=== PATIENT | female | born 1965 | race Caucasian/White ===

== ENCOUNTER 2016-08-04 21:33 | Emergency (ER) | payer MEDICAID ==
--- NOTE | 2016-08-04 21:55 | Emergency Department Record ---
History of Present Illness - General Chief Complaint: Chest Pain Stated Complaint: CHEST PAIN Time Seen by Provider: 08/04/16 21:54 Source: Patient Mode of Arrival: Ambulatory Limitations: No limitations - History of Present Illness Initial Comments: 51 yo female presents with right sided chest pain. The pain started at 6pm while eating dinner. It hurts in a specific place right of the sternum. It hurts to tough, move or take a deep breaths. No cough. No history of DVT, NH, HRT, CAD. The area is worse with palpation of the spot and worse if she tries to take a deep breath. No fevers. Non exertional in nature. No family history of CAD. MD Complaint: Chest pain -: Hour(s) (4) Onset: After eating Pain Location: Right chest Pain Radiation: None Severity: Moderate Quality: Aching Consistency: Constant Improves With: Remaining still Worsens With: Movement, Palpation Context: Other (No recent illness) Anginal Symptoms: Other (No shortness of breath) Treatments Prior to Arrival: None - Related Data Home Medications Medication Instructions Recorded Confirmed Last Taken Bupropion HCl [Wellbutrin Xl] 300 mg PO DAILY 08/04/16 08/04/16 08/04/16 Allergies Allergy/AdvReac Type Severity Reaction Status Date / Time No Known Drug Allergies Allergy Verified 08/04/16 21:39 Review of Systems Constitutional: Denies: Chills, Fever, Weakness Eyes: Denies: Eye discharge, Eye pain, Photophobia, Vision change ENT: Denies: Congestion, Epistaxis, Throat pain Respiratory: Denies: Cough, Dyspnea, Hemoptysis, Stridor, Wheezes Cardiovascular: Reports: As per HPI, Chest pain. Denies: Dyspnea on exertion, Edema, Palpitations, Syncope Endocrine: Denies: Fatigue Gastrointestinal: Denies: Abdominal pain, Diarrhea, Nausea, Vomiting Genitourinary: Denies: Dysuria Musculoskeletal: Denies: Arthralgia, Back pain, Joint swelling, Myalgia Skin: Denies: Bruising, Change in color, Rash Neurological: Denies: Headache, Numbness, Weakness Psychiatric: Denies: Anxiety Hematological/Lymphatic: Denies: Blood Clots, Easy bleeding, Easy bruising, Swollen glands Physical Exam - General General Appearance: Alert, Oriented x3, Cooperative, No acute distress Limitations: No limitations - Head Head exam: Atraumatic, Normocephalic, Normal inspection - Eye Eye exam: Normal appearance, PERRL. negative: Conjunctival injection, Periorbital swelling - ENT ENT exam: Normal exam, Mucous membranes moist Ear exam: Normal external inspection Nasal Exam: Normal inspection Mouth exam: Normal external inspection Teeth exam: Normal inspection Throat exam: Normal inspection - Neck Neck exam: Normal inspection, Full ROM. negative: Lymphadenopathy, Tenderness - Respiratory Respiratory exam: Normal lung sounds bilaterally, Chest wall tenderness (point tenderness right sternal border, mid sternum, no swellling or redness). negative: Accessory muscle use - Cardiovascular Cardiovascular Exam: Regular rate, Normal rhythm, Normal heart sounds Peripheral Pulses: 2+: Radial (R), Radial (L) - GI/Abdominal GI/Abdominal exam: Soft. negative: Tenderness - Rectal Rectal exam: Deferred - exam: Deferred - Extremities Extremities exam: Normal inspection, Full ROM, Normal capillary refill. negative: Pedal edema, Tenderness - Back Back exam: Reports: Normal inspection, Full ROM. Denies: Muscle spasm, Rash noted, Tenderness - Neurological Neurological exam: Alert, Normal gait, Oriented X3 - Psychiatric Psychiatric exam: Normal affect, Normal mood - Skin Skin exam: Dry, Intact, Normal color, Warm Course - Reevaluation(s) Reevaluation #1: EKG 21:36 NSR, rate 91, intervals normal, ST No acute changes, [place] normal 08/04/16 21:55 Reevaluation #2: The labs were reviewed. No acute changes of the CBC or CMP with normal renal function D-Dimer is elevated at 0.67 I explained this and recommend a CTA given the pain with deep inspiration 08/04/16 23:06 Reevaluation #3: The CTA of the chest was negative for PE She has a small left adrenal adenoma, benign. 08/05/16 00:59 Reevaluation #4: Repeat enzymes ordered for atypical pain that occurred 7 hours prior 08/05/16 01:00 Reevaluation #5: The repeat Troponin was negative The symptoms are very atypical with reproducibility with palpation and breathing , no significant risk factors for CAD, negative enzymes x's 2 with reproducible tenderness, normal CTA of the chest. We discussed the results and the plan to DC home for atypical chest wall pain We discussed close follow up and returning to the ER if any concerns, return of symptoms, short of breath. 08/05/16 01:18 08/05/16 01:46 Medical Decision Making - Lab Data Result diagrams: 08/04/16 21:50 08/04/16 21:50 Disposition Disposition: Discharge Clinical Impression: Chest wall pain Disposition: Home, Self-Care Condition: (1) Good Instructions: Chest Pain (ED) Additional Instructions: Return to the ER if you have return of pain, short of breath, swelling or any new concerns Call your doctor tomorrow for close follow up Forms: Patient Portal Access Time of Disposition: 01:19
[2016-08-04 22:09] LABS: BASO % 0.4 % (0-6); EOS % 1.5 % (0-6); GRAN % 64.8 % (47-80); HEMATOCRIT 41.6 % (35.0-47.0); HEMOGLOBIN 13.4 gm/dl (11.6-16.0); LYMPH % 24.6 % (16-45); MEAN CELL VOLUME 90.8 fl (81-97); MEAN CORPUSCULAR HEMOGLOBIN 29.3 pg (27-33); MEAN CORPUSCULAR HGB CONC 32.2 g/dl (32-36); MEAN PLATELET VOLUME 11.3 fl (7.4-10.4); MONO % 8.7 % (0-9); PLATELET COUNT 229 K/uL (130-400); RED BLOOD COUNT 4.58 M/uL (3.80-5.40); RED CELL DISTRIBUTION WIDTH 14.1 % (11.5-14.5); WHITE BLOOD COUNT W/O DIFF 9.1 K/uL (4.2-12.2)
[2016-08-04 22:21] LABS: ALB/GLOB RATIO 1.1 (1.1-1.8); ALBUMIN 4.3 gm/dL (3.5-5.0); ALKALINE PHOSPHATASE 110 U/L (38-126); ALT/SGPT 20 U/L (9-52); ANION GAP 4.9 (7-16); AST/SGOT 24 U/L (14-36); BILIRUBIN,TOTAL 0.47 mg/dL (0.2-1.3); BLOOD UREA NITROGEN 18 mg/dL (7-17); CARBON DIOXIDE 27.1 mmol/L (22-30); CREATINE PHOSPHOKINASE 112 U/L (30-135); CREATININE 0.9 mg/dL (0.52-1.04); EST GLOMERULAR FILTRATION RATE > 60 ml/min; GLUCOSE,RANDOM 97 mg/dL (70-110); TOTAL PROTEIN 8.2 gm/dL (6.3-8.2)
[2016-08-04 22:33] LABS: CKMB 0.4 ug/L (0-6); TROPONIN I < 0.012 ng/mL (0.00-0.034)
[2016-08-04] MEDS: KETOROLAC 30 MG/ML VIAL IVP ONE (22:50)
--- NOTE | 2016-08-06 09:03 | CT ANGIOGRAM REPORT ---
EXAM: CTA OF THE CHEST HISTORY: DIFFICULTY BREATHING. TECHNIQUE: CTA of the chest was performed following the IV administration of 89 ml of Omnipaque 350 contrast. Axial images were obtained with coronal and sagittal MIP reconstructions. Comparison: None. FINDINGS: The mediastinal vasculature enhances normally. There is no intraluminal filling defect to suggest pulmonary embolus. Negative for thoracic aortic aneurysm or dissection. The heart and pericardium are unremarkable. No adenopathy. Limited evaluation of the upper abdomen demonstrates a left adrenal nodule, likely relating to adenoma measuring 8 x 8 mm. The osseous structures are grossly intact. The visualized airways are patent. The lungs are clear. No pneumothorax. IMPRESSION: 1. NEGATIVE FOR AN ACUTE INTRATHORACIC PROCESS. 2. 8 MM LEFT ADRENAL NODULE, LIKELY AN ADENOMA. THIS COULD BE CONFIRMED WITH MULTIPHASIC MRI. JOB NUMBER: [id number] MTDD
== END 2016-08-05 01:36 | disposition home or self-care (01) ==
LOC: ER 21:33
DX: R07.9 Chest pain, unspecified (principal); D35.02 Benign neoplasm of left adrenal gland
CPT/HCPCS: 71275; 80053; 82550; 82553; 84484; 85025; 85379; 93005; 93010; 96374; 99284; J1885

== ENCOUNTER 2017-02-02 12:35 | Day surgery (SDC) | payer MEDICAID ==
[2017-02-02] MEDS ORDERED: PROPOFOL 10 MG/ML VIAL IV ONE (12:36)
[2017-02-02] MEDS ORDERED: LIDOCAINE 2% MDV (20MG/ML) 20ML VIAL IV ONE (12:36)
--- NOTE | 2017-02-03 13:30 | Operative Note ---
DATE OF SURGERY: 02/02/2017 OPERATION: COLONOSCOPY to the cecum. INDICATION: Colorectal cancer screening. ANESTHESIA: Intravenous sedation was administered by the department of anesthesiology and included Diprivan titrated to effect. PROCEDURE: Following informed consent from this alert individual including a discussion of the risks and benefits of the procedure and an opportunity for the patient to ask questions, the patient was in the left lateral decubitus position. A digital rectal examination was performed. No abnormalities were noted. Following this, the Olympus [id number] video colonoscope was inserted into the rectum without resistance. The rectal mucosa had a normal appearance with normal folds and distensibility. The colonoscope was advanced up through the colon to the level of the cecum without much difficulty. Throughout the bowel the mucosa appeared normal, the folds were normal, and the bowel was fairly well distensible. The cecum was defined by noting the appendiceal orifice and ileocecal valve. The colon preparation was good. From the base of the cecum, the colonoscope was then slowly withdrawn. No abnormalities were noted upon withdrawal. Retroflexion in the rectum was endoscopically unremarkable. The endoscope was straightened and removed. The patient tolerated the procedure well and was returned to the recovery area in stable condition. IMPRESSION: Unremarkable colonoscopy to the cecum. RECOMMENDATIONS: The patient was advised to have recheck colonoscopy for screening in 10 years' time or sooner should problems arise. Followup will be with Dr. Sylvester Davis. As always, thank you for allowing me to participate in the care of your patient. CC: Dr. Ryan WELLS
== END 2017-02-02 14:25 | disposition home or self-care (01) ==
LOC: HOP 12:35
PROVIDERS: ATTEND Internal Medicine Gastroenterology
DX: Z12.11 Encounter for screening for malignant neoplasm of colon (principal); I10 Essential (primary) hypertension
CPT/HCPCS: 00810; G0121

== ENCOUNTER 2018-05-02 22:04 | Observation (INO) | payer MEDICAID ==
[2018-05-02] MEDS ORDERED: ASPIRIN 81 MG CHEWABLE TABLET PO ONE (22:11)
--- NOTE | 2018-05-02 22:16 | Emergency Department Record ---
History of Present Illness - General Chief Complaint: Chest Pain Stated Complaint: LT ARM NUMBNESS,CHEST PRESSURE Time Seen by Provider: 05/02/18 22:06 Source: Patient Mode of Arrival: Ambulatory Limitations: No limitations - History of Present Illness Initial Comments: 53 yo female presents to ED for evaluation of chest discomfort and left upper extremity numbness that began this evening. Patient reports "I think it may be my anxiety, my blood pressure is never this high". Patient denies anything that improves or worsens her symptoms, denies fevers, chills, or recent illness. Patient denies lower extremity edema, swelling, or history of DVT. MD Complaint: Chest pain Onset/Timin -: Hour(s) Pain Location: Substernal Pain Radiation: None Severity: Moderate Quality: Aching Consistency: Constant Improves With: Nothing Worsens With: Nothing Treatments Prior to Arrival: None - Related Data On Oral Contraceptives: No Home Medications Medication Instructions Recorded Confirmed Last Taken Amlodipine Besylate/Benazepril 1 tab PO DAILY 05/02/18 05/02/18 Unknown [Amlodipine-Benazepril 5-20 mg] Allergies Allergy/AdvReac Type Severity Reaction Status Date / Time No Known Drug Allergies Allergy Verified 05/02/18 22:06 Review of Systems Constitutional: Denies: Chills, Fever, Malaise, Night sweats Eyes: Denies: Eye discharge, Eye pain ENT: Denies: Congestion, Ear pain, Epistaxis Respiratory: Denies: Cough, Dyspnea Cardiovascular: Reports: Chest pain. Denies: Dyspnea on exertion Endocrine: Denies: Fatigue, Heat or cold intolerance Gastrointestinal: Denies: Abdominal pain, Nausea, Vomiting Genitourinary: Denies: Incontinence, Retention Musculoskeletal: Denies: Arthralgia, Back pain Skin: Denies: Bruising, Change in color Neurological: Denies: Abnormal gait, Confusion, Headache, Seizure Psychiatric: Reports: Anxiety Hematological/Lymphatic: Denies: Anemia, Blood Clots Past Medical History - SOCIAL HISTORY Smoking Status: Never smoker - RESPIRATORY Hx Respiratory Disorders: No - CARDIOVASCULAR Hx Cardio Disorders: Yes Hx Hypertension: Yes - NEURO Hx Neuro Disorders: No - GI Hx GI Disorders: No - Hx Genitourinary Disorders: No - ENDOCRINE Hx Endocrine Disorders: No - MUSCULOSKELETAL Hx Musculoskeletal Disorders: Yes Hx Arthritis: Yes - PSYCH Hx Psych Problems: No - HEMATOLOGY/ONCOLOGY Hx Hematology/Oncology Disorders: Yes Hx Blood Transfusions: Yes (2 years old) Family Medical History Family Hx Comment (NOT TO BE USED IN PLACE OF ITEMS BELOW): denies Physical Exam - General General Appearance: Alert, Oriented x3, Cooperative, Mild distress, Anxious Limitations: No limitations - Head Head exam: Atraumatic, Normocephalic, Normal inspection Head exam detail: negative: Abrasion, Contusion, Wolf's sign, General tenderness, Hematoma, Laceration - Eye Eye exam: Normal appearance. negative: Conjunctival injection, Periorbital swelling, Periorbital tenderness, Scleral icterus - ENT Ear exam: negative: Auricular hematoma, Auricular trauma Nasal Exam: negative: Active bleeding, Discharge, Dried blood, Foreign body Mouth exam: negative: Drooling, Laceration, Muffled voice, Tongue elevation - Neck Neck exam: Normal inspection. negative: Meningismus, Tenderness - Respiratory Respiratory exam: Normal lung sounds bilaterally. negative: Rales, Respiratory distress, Rhonchi, Stridor - Cardiovascular Cardiovascular Exam: Regular rate, Normal rhythm, Normal heart sounds - GI/Abdominal GI/Abdominal exam: Soft. negative: Rebound, Rigid, Tenderness - Rectal Rectal exam: Deferred - exam: Deferred - Extremities Extremities exam: Normal inspection. negative: Pedal edema, Tenderness - Back Back exam: Denies: CVA tenderness (R), CVA tenderness (L) - Neurological Neurological exam: Alert, Normal gait, Oriented X3 - Psychiatric Psychiatric exam: Anxious, Normal mood - Skin Skin exam: Normal color. 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 Reevaluation #3: 05/02/18 23:26 CXR: No acute process Patient was updated on all results, will admit for further cardiac evaluation. Medical Decision Making - Lab Data Result diagrams: 05/02/18 22:23 05/02/18 22:23 Disposition Disposition: Admit Clinical Impression: Chest pain Qualifiers: Chest pain type: unspecified Qualified Code(s): R07.9 - Chest pain, unspecified Disposition: Still a Patient at [facility] Decision to Admit: Admit from ER Decision to Admit Date: 05/02/18 Decision to Admit Time: 23:27 Condition: (2) Stable Forms: Patient Portal Access Quality - Quality Measures Quality Measures: N/A - Blood Pressure Screening Does Patient Have Any of the Following: No Blood Pressure Classification: Hypertensive Reading Systolic Measurement: 173 Diastolic Measurement: 92 Screening for High Blood Pressure: < First Hypertensive BP, F/U Documented > [ [id number]] First Hypertensive Follow-up Interventions: Referral to alternative/primary care provider.
[2018-05-02 22:30] LABS: BASO % 0.5 % (0-6); EOS % 1.4 % (0-6); GRAN % 56.6 % (47-80); HEMATOCRIT 44.6 % (35.0-47.0); LYMPH % 32.4 % (16-45); MEAN CELL VOLUME 91.2 fl (81-97); MEAN CORPUSCULAR HEMOGLOBIN 28.6 pg (27-33); MEAN CORPUSCULAR HGB CONC 31.4 g/dl (32-36); MEAN PLATELET VOLUME 10.9 fl (7.4-10.4); MONO % 9.1 % (0-9); PLATELET COUNT 242 K/uL (130-400); RED BLOOD COUNT 4.89 M/uL (3.80-5.40); RED CELL DISTRIBUTION WIDTH 14.3 % (11.5-14.5); WHITE BLOOD COUNT W/O DIFF 7.8 K/uL (4.2-12.2)
[2018-05-02 22:44] LABS: BLOOD UREA NITROGEN 15 mg/dL (6-20); CREATININE 1.1 mg/dL (0.5-0.9); EST GLOMERULAR FILTRATION RATE 55 mL/min
[2018-05-02 22:45] LABS: TOTAL PROTEIN 8.1 g/dL (6.6-8.7)
[2018-05-02 22:47] LABS: GLUCOSE,RANDOM 110 mg/dL (74-109)
[2018-05-02 22:50] LABS: ALB/GLOB RATIO 1.3 (1.1-1.8); ALBUMIN 4.5 g/dL (4.0-5.0); ALKALINE PHOSPHATASE 87 U/L (35-104); ALT/SGPT 16 U/L (<33); AST/SGOT 20 U/L (10.0-35.0)
[2018-05-02] MEDS ORDERED: 0.9 % SODIUM CHLORIDE 1000ML 1,000 ML IV PRN (23:44)
--- NOTE | 2018-05-03 05:34 | History & Physical ---
History of Present Illness - Date of Service Date of Service for History & Physical: 05/03/18 - History of Present Illness Admitting Diagnosis: Chest pain. HTN History of Present Illness: Mrs. Jones is a 53 year-old female presented to the ED the evening of with complaint of chest discomfort and left upper extremity numbness that began earlier that evening. Patient reported "I think it may be my anxiety, my blood pressure is never this high". Patient denied anything that improved or worsened her symptoms, denied fevers, chills, or recent illness. Patient denied lower extremity edema, swelling, or history of DVT. Her history includes : HTN and arthritis, R TKA. In the ED, her vitals were stable. Labs unremarkable, neg troponins. CXR neg. She was admitted for cardiology consult, monitoring of serial enzymes and tele monitoring. 05/03/18: Pt. is resting in bed. She states that she has not had any episodes of CP since admitted. She denies recent change in exertion, recent headaches, vision changes, weakness, dizziness. She does mention that she sees a chiropractor regularly for chronic neck pain/tension. Second serial troponin neg, NSR on tele. Planned chem stress test this afternoon and cardiology consult. Will continue to monitor. PCP: Dr. Davis [employer] Wheels [employer] Axle Inspector: Dr. Ham Travel Screening - Travel/Exposure Within Last 30 Days Have you traveled within the last 30 days?: No - Travel/Exposure Within Last Year Have you traveled outside the [place] in the last year?: No - Additonal Travel Details Have you been exposed to anyone with a communicable illness?: No - Travel Symptoms Symptom Screening: None Review of Systems Constitutional: Denies: Chills, Fever, Malaise, Night sweats Eyes: Denies: Eye discharge, Eye pain ENT: Denies: Congestion, Ear pain, Epistaxis Respiratory: Denies: Cough, Dyspnea Cardiovascular: Reports: Chest pain. Denies: Dyspnea on exertion Endocrine: Denies: Fatigue, Heat or cold intolerance Gastrointestinal: Denies: Abdominal pain, Nausea, Vomiting Genitourinary: Denies: Incontinence, Retention Musculoskeletal: Denies: Arthralgia, Back pain Skin: Denies: Bruising, Change in color Neurological: Denies: Abnormal gait, Confusion, Headache, Seizure Psychiatric: Reports: Anxiety Hematological/Lymphatic: Denies: Anemia, Blood Clots Past Medical History - SOCIAL HISTORY Smoking Status: Never smoker Alcohol Use: None Drug Use: Rare Drug Use Detail:: Marijuana - RESPIRATORY Hx Respiratory Disorders: No - CARDIOVASCULAR Hx Cardio Disorders: Yes Hx Hypertension: Yes - NEURO Hx Neuro Disorders: No - GI Hx GI Disorders: No - Hx Genitourinary Disorders: No - ENDOCRINE Hx Endocrine Disorders: No - MUSCULOSKELETAL Hx Musculoskeletal Disorders: Yes Hx Arthritis: Yes - PSYCH Hx Psych Problems: No - HEMATOLOGY/ONCOLOGY Hx Hematology/Oncology Disorders: Yes Hx Blood Transfusions: Yes (2 years old) Family Medical History Any Significant Family History?: No Family Hx Comment (NOT TO BE USED IN PLACE OF ITEMS BELOW): denies H&P Meds/Allergies - Allergies Allergies: Allergies Allergy/AdvReac Type Severity Reaction Status Date / Time No Known Drug Allergies Allergy Verified 05/02/18 22:06 - Home Medications Home Medications Medication Instructions Recorded Confirmed Last Taken Amlodipine Besylate/Benazepril 1 tab PO DAILY 05/02/18 05/02/18 Unknown [Amlodipine-Benazepril 5-20 mg] - Active Medications Active Medications: Current Medications Amlodipine Besylate (Norvasc) 5 mg PO DAILY ROLAND Aspirin (Ecotrin (Ec)) 325 mg PO DAILY ROLAND Benazepril HCl (Lotensin) 20 mg PO DAILY ROLAND Sodium Chloride () 1,000 mls @ 100 mls/hr IV .Q10H PRN PRN Reason: LARGE VOLUME IV Physical Exam - Vital Signs Vital Signs: Vital Signs - Last 24 Hrs Temp Pulse Pulse Resp BP BP Pulse Ox 05/02/18 23:28 71 20 142/73 94 L 05/02/18 22:39 78 140/83 05/02/18 22:10 108 H 20 173/92 98 05/02/18 22:06 98.3 F 96 H 24 173/92 100 - General General Appearance: Alert, Oriented x3, Cooperative, Mild distress, Anxious Limitations: No limitations - Head Head exam: Atraumatic, Normocephalic, Normal inspection Head exam detail: negative: Abrasion, Contusion, Wolf's sign, General tenderness, Hematoma, Laceration - Eye Eye exam: Normal appearance. negative: Conjunctival injection, Periorbital swelling, Periorbital tenderness, Scleral icterus - ENT Ear exam: negative: Auricular hematoma, Auricular trauma Nasal Exam: negative: Active bleeding, Discharge, Dried blood, Foreign body Mouth exam: negative: Drooling, Laceration, Muffled voice, Tongue elevation - Neck Neck exam: Normal inspection. negative: Meningismus, Tenderness - Respiratory Respiratory exam: Normal lung sounds bilaterally. negative: Rales, Respiratory distress, Rhonchi, Stridor - Cardiovascular Cardiovascular Exam: Regular rate, Normal rhythm, Normal heart sounds - GI/Abdominal GI/Abdominal exam: Soft. negative: Rebound, Rigid, Tenderness - Rectal Rectal exam: Deferred - exam: Deferred - Extremities Extremities exam: Normal inspection. negative: Pedal edema, Tenderness - Back Back exam: Denies: CVA tenderness (R), CVA tenderness (L) - Neurological Neurological exam: Alert, Normal gait, Oriented X3 - Psychiatric Psychiatric exam: Anxious, Normal mood - Skin Skin exam: Normal color. negative: Abrasion Type of lesion: negative: abrasion Results - Labs Result Diagrams: 05/02/18 22:23 05/02/18 22:23 Labs Last 24 Hours: Laboratory Results - last 24 hr 05/02/18 05/02/18 05/02/18 22:23 22:23 22:23 WBC 7.8 RBC 4.89 Hgb 14.0 Hct 44.6 MCV 91.2 MCH 28.6 MCHC 31.4 L RDW 14.3 Plt Count 242 MPV 10.9 H Gran % 56.6 Lymphocytes % 32.4 Monocytes % 9.1 H Eosinophils % 1.4 Basophils % 0.5 D-Dimer < 0.19 Sodium 140 Potassium 3.9 Chloride 102 Carbon Dioxide 25.0 Anion Gap 13.0 BUN 15 Creatinine 1.1 H Estimated GFR 55 Random Glucose 110 H Calcium 9.8 Total Bilirubin 0.20 AST 20 ALT 16 Alkaline Phosphatase 87 Troponin T < 0.010 Total Protein 8.1 Albumin 4.5 Globulin 3.6 Albumin/Globulin Ratio 1.3 - Imaging and Cardiology Chest x-ray Status: Pending, Image reviewed (No acute process) VTE H&P Assessment - Risk for VTE Risk for VTE: Yes Risk Level: Low Risk Assessment Date: 05/03/18 Risk Assessment Time: 05:31 VTE Orders Placed or Will Be Placed: Yes Plan - Detailed Diagnosis and Plan (1) Chest pain Current Visit: Yes Status: Acute Qualifiers: Chest pain type: unspecified Qualified Code(s): R07.9 - Chest pain, unspecified Base Code: R07.9 - CHEST PAIN, UNSPECIFIED Comment: 05/03/18: -2nd serial troponin neg, NSR on tele -chem stress test this afternoon -Cardiology consult today (Shala ALFARO covering today) (2) Hypertension Current Visit: Yes Status: Acute Base Code: I10 - ESSENTIAL (PRIMARY) HYPERTENSION Comment: 05/03/18: -hx of HTN, continue home meds (lotensin 20mg daily, norvasc 5mg daily) (3) At risk for deep venous thrombosis Current Visit: Yes Status: Acute Base Code: Z91.89 - OTH PERSONAL RISK FACTORS, NOT ELSEWHERE CLASSIFIED Comment: 05/03/18: -Low risk for DVT, will initiate lovenox 40mg sc for prophylaxis if hospitaization greater than 24 hours (4) Full code status Current Visit: Yes Status: Acute Base Code: Z78.9 - OTHER SPECIFIED HEALTH STATUS Comment: 05/03/18: -Pt. is a full code
--- NOTE | 2018-05-03 08:53 | RADIOLOGY REPORT ---
EXAM: CHEST, TWO VIEWS HISTORY: LEFT ARM TINGLING. TECHNIQUE: Two views of the chest were obtained. Comparison: Chest radiograph 02/10/17. FINDINGS: The cardiac silhouette is within normal size limits. No focal pulmonary consolidation. No pleural effusion or pneumothorax. IMPRESSION: NO ACUTE LUNG FINDINGS. JOB NUMBER: [id number] MTDD
[2018-05-03] MEDS: BENAZEPRIL 20 MG TABLET PO SCH (10:05)
[2018-05-03] MEDS: AMLODIPINE BESYLATE 5MG TAB PO SCH (10:05)
[2018-05-03] MEDS: ASPIRIN 325 MG TAB ENTERIC-COATED PO SCH (10:05)
[2018-05-03] MEDS ORDERED: DIPHENHYDRAMINE HCL 25 MG CAPSULE PO PRN (20:15)
--- NOTE | 2018-05-04 09:20 | Physician Progress Note ---
Subjective - Date Date of Physician Progress Note: 05/04/18 - Subjective Subjective Comment: Denies any compliant over the last 24 hours. Reports has not had any chest pain , nausea, left arm numbness or tingling since arrival. Is aware of her anxiety and feels this past episode may have been from that. Did have chemical stress test yesterday. Nurses were given report from Lilia ALFARO (cardiology) there were findings of anterior defect and will be repeating the study today at 10am to determine if anatomical or other. In good spirits although is nervous about the repeat testing today. Did move bowels yesterday. Appetite has been poor since being here but is trying to eat and drink. Objective - Vital Signs Vital Signs: Vital Signs - Last 24 Hrs Temp Pulse Pulse Resp BP Pulse Ox 05/03/18 20:29 80 18 05/03/18 16:00 98.1 F 68 18 137/66 97 05/03/18 12:00 98.2 F 69 17 115/62 96 - General General Appearance: Alert, Oriented x3, Cooperative, Mild distress, Anxious Limitations: No limitations - Head Head exam: Atraumatic, Normocephalic, Normal inspection Head exam detail: negative: Abrasion, Contusion, Wolf's sign, General tenderness, Hematoma, Laceration - Eye Eye exam: Normal appearance. negative: Conjunctival injection, Periorbital swelling, Periorbital tenderness, Scleral icterus - ENT ENT exam: Mucous membranes moist Ear exam: negative: Auricular hematoma, Auricular trauma Nasal Exam: negative: Active bleeding, Discharge, Dried blood, Foreign body Mouth exam: negative: Drooling, Laceration, Muffled voice, Tongue elevation - Neck Neck exam: Normal inspection. negative: Meningismus, Tenderness - Respiratory Respiratory exam: Normal lung sounds bilaterally. negative: Rales, Respiratory distress, Rhonchi, Stridor - Cardiovascular Cardiovascular Exam: Regular rate, Normal rhythm, Normal heart sounds Peripheral Pulses: 3+: Dorsalis Pedis (R), Dorsalis Pedis (L) - GI/Abdominal GI/Abdominal exam: Soft, Normal bowel sounds. negative: Rebound, Rigid, Tenderness - Rectal Rectal exam: Deferred - exam: Deferred - Extremities Extremities exam: Normal inspection. negative: Calf tenderness, Pedal edema, Tenderness - Back Back exam: Denies: CVA tenderness (R), CVA tenderness (L) - Neurological Neurological exam: Alert, Normal gait, Oriented X3 - Psychiatric Psychiatric exam: Anxious, Normal mood - Skin Skin exam: Normal color. negative: Abrasion Type of lesion: negative: abrasion Assessment and Plan - Assessment and Plan (1) Chest pain Current Visit: Yes Status: Acute Qualifiers: Chest pain type: unspecified Qualified Code(s): R07.9 - Chest pain, unspecified Base Code: R07.9 - CHEST PAIN, UNSPECIFIED Comment: 05/04/18: - serial troponin x2 neg, lab unable to obtain #3, NSR on tele - chem stress test yesterday showed possible anterior defect, will be repeating today - Cardiology consult completed and following (2) Hypertension Current Visit: Yes Status: Acute Base Code: I10 - ESSENTIAL (PRIMARY) HYPERTENSION Comment: 05/04/18: -hx of HTN, continue home meds (lotensin 20mg daily, norvasc 5mg daily) (3) At risk for deep venous thrombosis Current Visit: Yes Status: Acute Base Code: Z91.89 - OTH PERSONAL RISK FACTORS, NOT ELSEWHERE CLASSIFIED Comment: 05/04/18: -Low risk for DVT, initiate Lovenox if not discharged today (4) Full code status Current Visit: Yes Status: Acute Base Code: Z78.9 - OTHER SPECIFIED HEALTH STATUS Comment: 05/04/18: -Pt. is a full code Results - Labs Result Diagrams: 05/02/18 22:23 05/02/18 22:23 Labs Last 24 Hours: Laboratory Results - last 24 hr 05/03/18 05/03/18 11:18 14:30 Troponin T Cancelled Urine Color Cancelled Urine Appearance Cancelled Urine pH Cancelled Ur Specific [place] Cancelled Urine Protein Cancelled Urine Glucose (UA) Cancelled Urine Clinitest Cancelled Urine Ketones Cancelled Urine Blood Cancelled Urine Nitrite Cancelled Urine Bilirubin Cancelled Urine Ictotest Cancelled Prot Sulfosalicylic Acd Cancelled Urine Urobilinogen Cancelled Ur Leukocyte Esterase Cancelled DVT/PE Assessment - Risk for VTE Risk for VTE: No Risk Level: Low Risk Assessment Date: 05/03/18 Risk Assessment Time: 05:31 VTE Orders Placed or Will Be Placed: Yes - Active Medicaitons Current Medications: Current Medications Amlodipine Besylate (Norvasc) 5 mg PO DAILY ROLAND Last Admin: 05/03/18 10:05 Dose: 5 mg Aspirin (Ecotrin (Ec)) 325 mg PO DAILY ROLAND Last Admin: 05/03/18 10:05 Dose: 325 mg Benazepril HCl (Lotensin) 20 mg PO DAILY ROLAND Last Admin: 05/03/18 10:05 Dose: 20 mg Diphenhydramine HCl (Benadryl Capsule) 25 mg PO Q6H PRN PRN Reason: insomnia Last Admin: 05/03/18 21:30 Dose: 25 mg Sodium Chloride () 1,000 mls @ 100 mls/hr IV .Q10H PRN PRN Reason: LARGE VOLUME IV AMI Plan - Labs Result Diagrams: 05/02/18 22:23 05/02/18 22:23
[2018-05-04] MEDS: BENAZEPRIL 20 MG TABLET PO SCH (11:33)
[2018-05-04] MEDS: AMLODIPINE BESYLATE 5MG TAB PO SCH (11:33)
[2018-05-04] MEDS: ASPIRIN 325 MG TAB ENTERIC-COATED PO SCH (11:33)
--- NOTE | 2018-05-04 17:17 | Medical Records Consult ---
DATE OF CONSULTATION: 05/03/2018 REASON FOR CONSULTATION: CHEST PAIN, HYPERTENSION. HISTORY OF PRESENT ILLNESS: Ms. Gongora is a pleasant 53-year-old female with a history of hypertension, who presented to [facility] yesterday with complaints of chest pain. She has no known history of coronary artery disease. She had a basic treadmill stress test in 2017 that was negative for evidence of stress-induced ischemia. She has no previous history of hyperlipidemia, diabetes mellitus, previous CVA/TIA, or previous DVT/PE. Her father from acute myocardial infarction at 76 years old. She denies any tobacco or alcohol abuse. She reports left arm and shoulder pain occurring most of the day yesterday. Denies any recent trauma. Around 9 p.m., when she was sitting in her arm chair, she developed shooting left arm pain as well as numbness and tingling extending into her fingers. She also had associated neck and back pain. She did have associated palpitations as well as diaphoresis. She denies any recent fever, chills, nausea, vomiting, recent bleeding, headaches, peripheral edema, orthopnea, PND, or syncope. She has no known history of obstructive sleep apnea or thyroid dysfunction. When she took her blood pressure at home it was 183/92. Upon arrival to [facility], her EKG showed normal sinus rhythm, borderline tachycardic at 101 beats per minute with no acute ischemic changes. D-dimer was negative. Chest x-ray did not show any acute intrathoracic process. Cardiac enzymes were negative x2. She was admitted to the telemetry floor for observation with plan for chemical nuclear stress test today. PAST MEDICAL HISTORY: 1. Anxiety. 2. Hypertension. ALLERGIES: NO KNOWN DRUG ALLERGIES. HOME MEDICATIONS: Benazepril 20 mg once daily Amlodipine 5 mg once daily SOCIAL HISTORY: Denies tobacco or alcohol use. Rarely uses marijuana. FAMILY HISTORY: Her father from acute myocardial infarction at 76 years old. REVIEW OF SYSTEMS: CONSTITUTIONAL: Denies fever, chills, night sweats. HEENT: Denies headache, sinus congestion. RESPIRATORY: Reports cough, denies shortness of breath. CARDIOVASCULAR: Reports chest pain and palpitations. Denies syncope, peripheral edema, orthopnea, or PND. GI: Denies abdominal pain, nausea, vomiting , hematochezia, melena. : Denies dysuria or hematuria. OBJECTIVE: Vital Signs: Blood pressure 124/77. Pulse 69. Temperature 97.9. Respirations 16. SP02 is 96% on room air. LABS: WBC 7.8, hemoglobin 14, hematocrit 44.6, platelets 242, sodium 140, potassium 3.9, chloride 102, C02 is 25, BUN 15, creatinine 1.1, glucose 55, D- dimer less than 0.19, troponin negative x2. IMAGING: Chest x-ray did not show any acute intrathoracic process. EKG: EKG showed normal sinus rhythm, borderline tachycardic, rate 101 beats per minute with no acute ischemic changes. PHYSICAL EXAMINATION: GENERAL: Alert and oriented x3, in no acute distress. HEENT: Normocephalic, atraumatic. Pupils are equal, round, and reactive to light , extraocular movements intact. CARDIAC: Regular rate and rhythm, plus S1 and S2, no murmurs, rubs, or gallops. LUNGS: Clear to auscultation anterior lung conner bilaterally, normal respiratory effort. ABDOMEN: Soft, nontender with active bowel sounds in all four quadrants. EXTREMITIES: 2+ radial and pedal pulses, no peripheral edema. NEURO: Cranial nerves II through XII grossly intact. PSYCH: Appropriate mood and affect. ASSESSMENT: 1. ATYPICAL CHEST PAIN. 2. HYPERTENSIVE URGENCY, RESOLVED. 3. HISTORY OF ANXIETY. PLAN: Ms. Gongora is a very pleasant 53-year-old female with a history of hypertension and anxiety who presented to [facility] yesterday evening with complaints of chest and neck pain with associated left arm numbness and tingling as well as diaphoresis. She was hypertensive on arrival. Blood pressure has improved back to normal, this morning 124/77. She is currently on Amlodipine 5 mg daily and Benazepril 20 mg daily. Her cardiac symptoms have resolved. Troponins have been negative x2. EKG did not show any acute changes. D-dimer was less than 0.19. Previous basic treadmill stress test in 2017 was negative for evidence of stress-induced ischemia. At this time, we will plan for chemical nuclear stress test. She will need a two-day study. Therefore, we will complete stress imaging today and review myocardial perfusion imaging with the college coach, Dr. Ham, and if satisfactory, we will likely plan for her to be discharged to possibly complete resting pictures in the next 48 hours. Discussed the case with attending physician, Dr. Ham. cc: Dr. Ham JOB NUMBER: [id number] MTDD
--- NOTE | 2018-05-05 08:38 | Discharge Summary ---
Providers Discharge Summary Date: 05/04/18 Date of admission: 05/02/18 23:39 Attending physician: MARY KATE MARIE Primary care physician: KATHY HERNÁNDEZ D.O. 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 negative: Conjunctival injection, Periorbital swelling, Periorbital tenderness, Scleral icterus - ENT ENT exam: Mucous membranes moist Ear exam: negative: Auricular hematoma, Auricular trauma Nasal Exam: negative: Active bleeding, Discharge, Dried blood, Foreign body Mouth exam: negative: Drooling, Laceration, Muffled voice, Tongue elevation - Neck Neck exam: Normal inspection. negative: Meningismus, Tenderness - Respiratory Respiratory exam: Normal lung sounds bilaterally. negative: Rales, Respiratory distress, Rhonchi, Stridor - Cardiovascular Cardiovascular Exam: Regular rate, Normal rhythm, Normal heart sounds Peripheral Pulses: 3+: Dorsalis Pedis (R), Dorsalis Pedis (L) - GI/Abdominal GI/Abdominal exam: Soft, Normal bowel sounds. negative: Rebound, Rigid, Tenderness - Rectal Rectal exam: Deferred - exam: Deferred - Extremities Extremities exam: Normal inspection. negative: Calf tenderness, Pedal edema, Tenderness - Back Back exam: Denies: CVA tenderness (R), CVA tenderness (L) - Neurological Neurological exam: Alert, Normal gait, Oriented X3 - Psychiatric Psychiatric exam: Anxious, Normal mood - Skin Skin exam: Normal color. negative: Abrasion Type of lesion: negative: abrasion Hospitalization - Hospitalization Admission Diagnosis: Chest pain. HTN - Problem List/Discharge Diagnosis (1) Chest pain Status: Acute Discharge Diagnosis: Chest pain type: unspecified Qualified Code(s): R07.9 - Chest pain, unspecified Base Code: R07.9 - CHEST PAIN, UNSPECIFIED Comment: 05/04/18: - serial troponin x2 neg, lab unable to obtain #3, NSR on tele and remained for entire admit - chem stress test anterior defect, spoke with [facility] DOMINIC Mcgill, advised needsw to follow up with her and will be planning for outpatient heart cath - Cardiology consult completed - Discharge home on Lipitor 40mg QD and ASA 81mg QD (2) Hypertension Status: Acute Base Code: I10 - ESSENTIAL (PRIMARY) HYPERTENSION Comment: 07/18: -hx of HTN, continue home meds (lotensin 20mg daily, norvasc 5mg daily) - BP controlled during visit (3) At risk for deep venous thrombosis Status: Acute Base Code: Z91.89 - OTH PERSONAL RISK FACTORS, NOT ELSEWHERE CLASSIFIED Comment: 05/04/18: -Low risk for DVT, initiate Lovenox if not discharged today (4) Full code status Status: Acute Base Code: Z78.9 - OTHER SPECIFIED HEALTH STATUS Comment: 05/04: -Pt. is a full code - Hospitalization Course Disposition: Home, Self-Care Hospital Course: Mrs. Jones is a 53 year-old female presented to the ED the evening of with complaint of chest discomfort and left upper extremity numbness that began earlier that evening. Patient reported "I think it may be my anxiety, my blood pressure is never this high". Patient denied anything that improved or worsened her symptoms, denied fevers, chills, or recent illness. Patient denied lower extremity edema, swelling, or history of DVT. Her history includes : HTN and arthritis, R TKA. In the ED, her vitals were stable. Labs unremarkable, neg troponins. CXR neg. She was admitted for cardiology consult, monitoring of serial enzymes and tele monitoring. 05/03/18: Pt. is resting in bed. She states that she has not had any episodes of CP since admitted. She denies recent change in exertion, recent headaches, vision changes, weakness, dizziness. She does mention that she sees a chiropractor regularly for chronic neck pain/tension. Second serial troponin neg, NSR on tele. Planned chem stress test this afternoon and cardiology consult. Will continue to monitor. PCP: Dr. Hernández Video Games Storywriter: Dr. Vance Procedures: Imaging and X-Rays 05/02/18 22:47 CHEST 2 VIEWS [RAD] Stat Cardiology Procedures 05/02/18 22:11 EKG NOW 05/02/18 23:44 Water Quality Manager .Continuous 05/03/18 06:52 Cardiolite MPI w/chemical stre ONCE Abnormal Labs: Abnormal Lab Results 05/02/18 05/02/18 Range/Units 22:23 22:23 MCHC 31.4 L (32-36) g/dl MPV 10.9 H (7.4-10.4) fl Monocytes % 9.1 H (0-9) % Creatinine 1.1 H (0.5-0.9) mg/dL Random Glucose 110 H (74-109) mg/dL Condition at Discharge: (2) Stable Discharge Medications - Discharge Medications Home Medications: Ambulatory Orders Amlodipine Besylate/Benazepril [Amlodipine-Benazepril 5-20 mg] 1 tab PO DAILY [Last Taken Unknown] Discharge Plan - Discharge Instructions Activity at Discharge: Return To Work Once Cleared By Your PCP/Specialist Diet at Discharge: Low Fat, Low Cholesterol, Low Salt Diet Instructions: Atorvastatin (By mouth), Chest Pain (DC), Heart Healthy Diet (DC) , Hypertension (DC), Heart Catheterization (DC) Additional Instructions: Call Lilia at [facility] ([phone]) in the morning to schedule an appointment for this 05/06/2018 Take a baby Aspirin 81mg daily A new prescription has been called into [facility] on [address] in [place] for Lipitor 40mg, take one a day Please return to the emergency room if symptoms return. Quality Measures - Quality Measures Quality Measures: Documentation of Current Medications in Medical Record, Screening for High Blood Pressure and F/U Documented - Current Medications Quality Measure: Measure #130: Documentation of Current Medications Documentation of Current Medications: <Current Medications Documented/Reviewed> [G8427] - Blood Pressure Screening Quality Measure: Screening for High Blood Pressure and Follow-Up Documented Does Patient Have Any of the Following: Active Dx of HTN Blood Pressure Classification: Hypertensive Reading Systolic Measurement: 173 Diastolic Measurement: 92 Screening for High Blood Pressure: Patient Exclusion, Hx of HTN [G9744] - Elder Abuse Suspicion Index EASI Reference Information: Dorothea SUERO, Cameron Newton, Juanito Johnson, Melvin Fragoso.Development and validation of a tool to assist physicians identification of elder abuse: The Elder Abuse Suspicion Index (EASI ). Journal of Elder Abuse and Neglect, 2008; 20 (3): 276-300.
--- NOTE | 2018-05-05 17:10 | Lexiscan Stress Test Report ---
DATE OF STRESS TEST: 05/05/2018 INTERPRETING PHYSICIAN: Stacy Ham M.D. PRIMARY CARE PROVIDER: Dr. Hema Davis INDICATION: CHEST PAIN. This patient underwent a two-day protocol stress test. Her resting ECG shows a sinus rhythm with normal QRS axis and normal intervals. The patient's resting blood pressure is 125/76 mmHg and a heart rate of 69 beats per minute. The patient was given 0.4 mg of Regadenoson via peripheral vein as per protocol and her KASIA and blood pressure were monitored through the stress test. The patient's maximum blood pressure was 169/68 mmHg. The patient's ECG doesn't show any ST or T-wave changes suggestive of ischemia. No arrhythmia was seen either. MYOCARDIAL PERFUSION IMAGING: Rest and post stress myocardial perfusion images were performed utilizing technetium-99m Sestamibi. A 32.6 mCi resting dose was utilized on 05/04 and a 32 mCi dose was utilized on 05/03; this was the stress dose. Images were obtained in the short axis view as well as in the vertical long axis and horizontal long axis views and were compared side by side. Rest and post stress myocardial perfusion images reveal a medium-sized, moderate in intensity, reversible defect involving the anterior wall suggestive of possible ischemia in the LAD territory. EKG gated images were performed for evaluation of wall motion and LV function. A left ventricular end-diastolic volume was calculated to be 111 mL and end- systolic volume of 38 mL with a stroke volume of 73 mL and a calculated ejection fraction of 66%. IMPRESSION: 1. NORMAL ECG RESPONSE TO PHARMACOLOGIC VASODILATOR STRESS. 2. REST AND POST STRESS MYOCARDIAL PERFUSION IMAGES REVEAL A PERFUSION DEFECT IN THE ANTERIOR WALL SUGGESTIVE OF ISCHEMIA IN THE LAD TERRITORY. 3. NORMAL LEFT VENTRICULAR SIZE AND FUNCTION WITH AN ESTIMATED EJECTION FRACTION OF 66%. JOB NUMBER: [id number] MTDD
== END 2018-05-04 19:23 | disposition home or self-care (01) ==
LOC: ER 22:04 → MEDSURG 23:39
PROVIDERS: ADMIT Internal Medicine; ATTEND Internal Medicine
DX: R07.9 Chest pain, unspecified (principal); I10 Essential (primary) hypertension; M19.90 Unspecified osteoarthritis, unspecified site; F12.90 Cannabis use, unspecified, uncomplicated
CPT/HCPCS: 99285 ×2; 85025; 80053; 84484 ×2; 85379; 71046; 93017; 78452; 93005; 93010; G0378 ×3; A9500; J2785; 99217; 99220